=== PATIENT | female | born 1960 | race Caucasian/White ===

== ENCOUNTER 2021-06-21 11:00 | Day surgery (SDC) | payer OTHER ==
[~2021-06-21] VITALS: Ht 172.7 cm; Wt 92.5 kg
[2021-06-21 11:25] VITALS: BP 138/83
[2021-06-21] MEDS ORDERED: LIDOcaine 1% 30ml preserv. free vial IJ STA (11:32)
[2021-06-21] MEDS ORDERED: FLUO40CA10 PO (11:39)
[2021-06-21] MEDS ORDERED: ALPR-623 PO (11:39)
[2021-06-21] MEDS ORDERED: HYDR25TA5 PO (11:39)
[2021-06-21] MEDS ORDERED: LOSA50TA3 PO (11:39)
[2021-06-21] MEDS ORDERED: LEVO50TA8 PO (11:39)
[2021-06-21 12:30] VITALS: BP 134/71
[2021-06-21 12:45] VITALS: BP 132/65
[2021-06-21 12:49] VITALS: BP 131/73
[2021-06-21 13:00] VITALS: BP 132/70
[2021-06-21 13:10] VITALS: BP 135/70
== END 2021-06-21 13:10 | disposition home or self-care (01) ==
LOC: SSTAY O 11:00
PROVIDERS: ATTEND Radiology Diagnostic Radiology
DX: R59.0 Localized enlarged lymph nodes (principal); E03.9 Hypothyroidism, unspecified; F32.9 Major depressive disorder, single episode, unspecified; F41.9 Anxiety disorder, unspecified; I10 Essential (primary) hypertension; Z88.8 Allergy status to other drugs, medicaments and biological substances; Z88.2 Allergy status to sulfonamides; Z79.899 Other long term (current) drug therapy
CPT/HCPCS: 38505; 76942

== ENCOUNTER 2023-09-10 14:56 | Inpatient (IN) | payer OTHER ==
[~2023-09-10] VITALS: Ht 171.4 cm; Wt 94.8 kg
[2023-09-10] VITALS (8 sets, daily range): BP systolic 115–131; BP diastolic 55–64; PULSE 83–92; RESP 14–20; TEMP 98.3–99.1
[~2023-09-10 14:56] MED LIST: ALPR-623 PO; FLUO40CA10 PO; HYDR25TA5 PO; LEVO50TA8 PO; LOSA-416 PO
[2023-09-10 15:48] LABS: BASOPHILS % (AUTO) 1.1 % (0-1); EOSINOPHILS # (AUTO) 0.1 X10'3 (0-0.9); EOSINOPHILS % (AUTO) 2.6 % (0-6); LYMPHOCYTES % (AUTO) 23.7 % (21-51); MEAN CORPUSCULAR HEMOGLOBIN 26.6 PG (27.0-31.0); MEAN CORPUSCULAR HGB CONC 30.1 g/dL (33.0-36.5); MEAN CORPUSCULAR VOLUME 88.2 FL (78-98); MEAN PLATELET VOLUME 9.5 FL (7.4-10.4); MONOCYTES # (AUTO) 0.3 X10'3 (0-0.9); MONOCYTES % (AUTO) 7.3 % (2-12); NEUTROPHILS # (AUTO) 2.7 X10'3 (1.8-7.7); NEUTROPHILS % (AUTO) 65.3 % (42-75); PLATELET COUNT 97 X10'3 (140-440); RED BLOOD COUNT 1.56 X10'6 (4.20-5.60); RED CELL DISTRIBUTION WIDTH 19.3 % (11.5-14.5); WHITE BLOOD COUNT 4.1 X10'3 (4.5-11.0)
[2023-09-10 15:52] LABS: ALBUMIN 2.6 G/DL (3.4-5.0); ANION GAP 12 (8-16); BLOOD UREA NITROGEN 13 MG/DL (7-18); BUN/CREATININE RATIO 13.8 (10.0-20.0); CALCIUM 7.2 MG/DL (8.5-10.1); CHLORIDE 110 MMOL/L (99-107); CREATININE 0.94 MG/DL (0.40-0.90); GLUCOSE 110 MG/DL (70-104); POTASSIUM 3.7 MMOL/L (3.5-5.1); SODIUM 143 MMOL/L (135-145); TOTAL CARBON DIOXIDE 20.7 MMOL/L (24-32); eCRCL 61 ML/MIN; eGFR 60 ML/MIN
[2023-09-10 15:56] LABS: APTT 27 SECONDS (22-32); INR 1.2 INR; PROTHROMBIN TIME 12.6 SECONDS (9.0-12.0)
[2023-09-10 15:58] LABS: HEMATOCRIT 13.7 % (35.0-45.0); HEMOGLOBIN 4.1 g/dl (12.0-16.0)
[2023-09-10 16:41] LABS: ANISOCYTOSIS 2+; HYPOCHROMASIA 1+; PLATELET ESTIMATE DECREASED; STOMATOCYTES FEW; TARGET CELLS FEW
[2023-09-10 16:42] LABS: POIKILOCYTOSIS FEW
[2023-09-10 18:45] LABS: BILIRUBIN,URINE NEGATIVE (Neg); CLARITY,URINE SLIGHTLY CLOUDY (Clear); COLOR,URINE YELLOW (Yellow); GLUCOSE, URINE NEGATIVE (Neg); KETONES,URINE NEGATIVE (Neg); LEUKOCYTE ESTERASE ,URINE NEGATIVE (Neg); NITRITES, URINE NEGATIVE (Neg); OCCULT BLOOD,URINE NEGATIVE (Neg); PROTEIN,URINE NEGATIVE (Neg); UROBILINOGEN,URINE 0.2 E.U/dL (0.2-1.0)
[2023-09-10 18:51] LABS: UA COLLECTION TYPE NON-SPECIFIED
[2023-09-10 18:56] LABS: BACTERIA,URINE FEW /HPF (Neg); MUCUS STRANDS MODERATE /LPF (Neg); RBC,URINE 0-2 /HPF (0-2); RENAL CELLS, URINE FEW /HPF; SQUAMOUS EPITHELIAL CELL,UR FEW /LPF (FEW); WBC,URINE 0-4 /HPF (0-4)
[2023-09-10 19:08] LABS: OCCULT BLOOD STOOL NEGATIVE (Neg)
[2023-09-10] MEDS ORDERED: HYDROcodone/acetaminophen 5mg/325mg tablet PO PRN (20:15)
[2023-09-10] MEDS ORDERED: potassium Cl 20 mEq SR tablet PO PRN ×2 (20:15)
[2023-09-10] MEDS ORDERED: ondansetron/PF 4mg/2ml inj IV PRN (20:15)
[2023-09-10] MEDS ORDERED: magnesium hydroxide 30ml (MOM) UD suspension PO PRN (20:15)
[2023-09-10] MEDS ORDERED: magnesium 4gm in 100ml NS 100 ML IV PRN (20:15)
[2023-09-10] MEDS ORDERED: acetaminophen 325mg tablet PO PRN ×2 (20:15)
[2023-09-10] MEDS ORDERED: magnesium Cl slow-release 64mg tablet PO PRN (20:15)
[2023-09-10] MEDS ORDERED: HYDROcodone/acetaminophen 10/325mg tab PO PRN (20:15)
[2023-09-10] MEDS ORDERED: magnesium 2GM in 50ml NS 50 ML IV PRN (20:15)
[2023-09-10] MEDS ORDERED: potassium Cl 40MEQ/1/2NS 520ml 520 ML IV PRN (20:15)
[2023-09-10] MEDS ORDERED: mag hydrox/Alum hydrox/simeth 30ml oral suspension PO PRN (20:15)
[2023-09-10] MEDS: pantoprazole 40 MG vial IV SCH (20:48)
[2023-09-10 22:04] LABS: ABG BASE EXCESS -3.5 mmol/L (-2.0-2.0); ABG OXYGEN SATURATION 97.9 % (94-97); ABG PCO2 (T) 28.6 mmHg (32.0-45.0); ABG PH (T) 7.462 (7.350-7.450); ABG PO2 (T) 98.8 mmHg (75.0-100.0); FCOHb 0.8 % (0.0-3.9); FHHb 2.1 % (0.0-5.0); FMetHb 0.5 % (0.0-1.5); FO2Hb 96.6 % (94-97); MODE ROOM AIR; TOTAL HEMOGLOBIN 5.7 G/dl (12.0-16.0)
[2023-09-10 22:45] LABS: URINE AMPHETAMINE SCREEN NEGATIVE (Neg); URINE BARBITUATE SCREEN NEGATIVE (Neg); URINE BENZODIAZEPINES SCREEN NEGATIVE (Neg); URINE CANNABINOID SCREEN NEGATIVE (Neg); URINE COCAINE SCREEN NEGATIVE (Neg); URINE METHADONE SCREEN NEGATIVE (Neg); URINE OPIATE SCREEN NEGATIVE (Neg); URINE PHENCYCLIDINE SCREEN NEGATIVE (Neg)
[2023-09-11] VITALS (15 sets, daily range): BP systolic 106–134; BP diastolic 52–75; PULSE 81–91; RESP 15–22; TEMP 97.7–98.7; O2SAT 95–100
[2023-09-11 00:03] LABS: WHITE BLOOD COUNT 3.8 X10'3 (4.5-11.0)
[2023-09-11 00:04] LABS: MEAN CORPUSCULAR VOLUME 87.4 FL (78-98); MEAN PLATELET VOLUME 9.2 FL (7.4-10.4); PLATELET COUNT 70 X10'3 (140-440); RED BLOOD COUNT 2.12 X10'6 (4.20-5.60); RED CELL DISTRIBUTION WIDTH 18.5 % (11.5-14.5)
[2023-09-11 00:12] LABS: HEMOGLOBIN 5.9 g/dl (12.0-16.0)
[2023-09-11 00:13] LABS: HEMATOCRIT 18.6 % (35.0-45.0)
[2023-09-11] MEDS ORDERED: FLUO-12 PO (01:07)
[2023-09-11 07:49] LABS: BASOPHILS % (AUTO) 0.7 % (0-1); EOSINOPHILS # (AUTO) 0.1 X10'3 (0-0.9); EOSINOPHILS % (AUTO) 2.4 % (0-6); HEMATOCRIT 25.1 % (35.0-45.0); HEMOGLOBIN 8.1 g/dl (12.0-16.0); LYMPHOCYTES # (AUTO) 0.9 X10'3 (1.1-4.8); LYMPHOCYTES % (AUTO) 21.8 % (21-51); MEAN CORPUSCULAR HEMOGLOBIN 27.8 PG (27.0-31.0); MEAN CORPUSCULAR HGB CONC 32.5 g/dL (33.0-36.5); MEAN CORPUSCULAR VOLUME 85.8 FL (78-98); MEAN PLATELET VOLUME 9.3 FL (7.4-10.4); MONOCYTES # (AUTO) 0.3 X10'3 (0-0.9); MONOCYTES % (AUTO) 8.2 % (2-12); NEUTROPHILS # (AUTO) 2.7 X10'3 (1.8-7.7); NEUTROPHILS % (AUTO) 66.9 % (42-75); PLATELET COUNT 75 X10'3 (140-440); RED BLOOD COUNT 2.92 X10'6 (4.20-5.60); RED CELL DISTRIBUTION WIDTH 17.6 % (11.5-14.5); WHITE BLOOD COUNT 4.1 X10'3 (4.5-11.0)
[2023-09-11 07:56] LABS: APTT 28 SECONDS (22-32); INR 1.2 INR
[2023-09-11] MEDS: K and/or MAG REPLACEMENT MC SCH (08:00)
[2023-09-11 08:14] LABS: ALANINE AMINOTRANSFERASE 9 U/L (12-78); ALBUMIN 2.4 G/DL (3.4-5.0); ALBUMIN/GLOBULIN RATIO 0.7 (1.1-1.5); ALKALINE PHOSPHATASE 67 IU/L (46-116); ANION GAP 12 (8-16); ASPARTATE AMINO TRANSFERASE 32 U/L (10-37); BLOOD UREA NITROGEN 11 MG/DL (7-18); BUN/CREATININE RATIO 14.1 (10.0-20.0); CALCIUM 7.8 MG/DL (8.5-10.1); CHLORIDE 112 MMOL/L (99-107); CREATININE 0.78 MG/DL (0.40-0.90); FREE T4 (FREE THYROXINE) 1.34 NG/DL (0.73-1.40); GLUCOSE 88 MG/DL (70-104); MAGNESIUM 2.2 MG/DL (1.5-2.4); PHOSPHORUS 2.9 MG/DL (2.3-4.5); POTASSIUM 3.7 MMOL/L (3.5-5.1); SODIUM 145 MMOL/L (135-145); THYROID STIMULATING HORMONE 2.71 ulU/ml (0.34-4.50); TOTAL CARBON DIOXIDE 21.1 MMOL/L (24-32); eCRCL 73 ML/MIN; eGFR 75 ML/MIN
[2023-09-11 08:19] LABS: FERRITIN 18 NG/ML (8-252)
[2023-09-11 08:46] LABS: % IRON SATURATION 55 % (11-46); IRON 212 UG/DL (49-151); TOTAL IRON BINDING CAPACITY 383 UG/DL (259-388)
[2023-09-11] MEDS ORDERED: ALPRAZolam 0.25mg tablet PO PRN (11:25)
[2023-09-11 11:39] LABS: HEMATOCRIT 26.2 % (35.0-45.0); MEAN CORPUSCULAR HGB CONC 32.2 g/dL (33.0-36.5); RED CELL DISTRIBUTION WIDTH 17.6 % (11.5-14.5)
[2023-09-11 11:40] LABS: HEMOGLOBIN 8.4 g/dl (12.0-16.0); MEAN CORPUSCULAR HEMOGLOBIN 27.8 PG (27.0-31.0); MEAN CORPUSCULAR VOLUME 86.2 FL (78-98); MEAN PLATELET VOLUME 9.2 FL (7.4-10.4); PLATELET COUNT 71 X10'3 (140-440); RED BLOOD COUNT 3.04 X10'6 (4.20-5.60)
[2023-09-12 02:00] VITALS: BP 114/43; PULSE 96; RESP 18; TEMP 97.4; O2SAT 96
[2023-09-12 06:00] VITALS: BP 118/54; PULSE 98; RESP 18; TEMP 97.7; O2SAT 98
[2023-09-12 06:46] LABS: BASOPHILS % (AUTO) 0.7 % (0-1); EOSINOPHILS # (AUTO) 0.1 X10'3 (0-0.9); HEMATOCRIT 25.1 % (35.0-45.0); HEMOGLOBIN 8.3 g/dl (12.0-16.0); LYMPHOCYTES # (AUTO) 0.8 X10'3 (1.1-4.8); LYMPHOCYTES % (AUTO) 19.9 % (21-51); MEAN CORPUSCULAR HEMOGLOBIN 28.4 PG (27.0-31.0); MEAN PLATELET VOLUME 9.4 FL (7.4-10.4); MONOCYTES # (AUTO) 0.4 X10'3 (0-0.9); MONOCYTES % (AUTO) 9.1 % (2-12); NEUTROPHILS # (AUTO) 2.8 X10'3 (1.8-7.7); NEUTROPHILS % (AUTO) 67.3 % (42-75); PLATELET COUNT 67 X10'3 (140-440); RED BLOOD COUNT 2.91 X10'6 (4.20-5.60); RED CELL DISTRIBUTION WIDTH 17.7 % (11.5-14.5); WHITE BLOOD COUNT 4.1 X10'3 (4.5-11.0)
[2023-09-12 07:00] LABS: APTT 31 SECONDS (22-32); INR 1.3 INR; PROTHROMBIN TIME 13.7 SECONDS (9.0-12.0)
[2023-09-12 07:17] LABS: ALANINE AMINOTRANSFERASE 8 U/L (12-78); ALBUMIN 2.3 G/DL (3.4-5.0); ALBUMIN/GLOBULIN RATIO 0.6 (1.1-1.5); ALKALINE PHOSPHATASE 70 IU/L (46-116); ANION GAP 10 (8-16); ASPARTATE AMINO TRANSFERASE 29 U/L (10-37); BILIRUBIN,TOTAL 2.4 MG/DL (0.1-1.0); BLOOD UREA NITROGEN 11 MG/DL (7-18); BUN/CREATININE RATIO 12.2 (10.0-20.0); CALCIUM 7.8 MG/DL (8.5-10.1); GLUCOSE 89 MG/DL (70-104); MAGNESIUM 2.1 MG/DL (1.5-2.4); PHOSPHORUS 2.5 MG/DL (2.3-4.5); POTASSIUM 3.7 MMOL/L (3.5-5.1); SODIUM 145 MMOL/L (135-145); TOTAL CARBON DIOXIDE 21.4 MMOL/L (24-32); TOTAL PROTEIN 5.9 G/DL (6.4-8.2); eCRCL 63 ML/MIN; eGFR 63 ML/MIN
[2023-09-12] MEDS: levoTHYROXINE 25mcg tablet PO SCH (07:25)
[2023-09-12] MEDS: FLUoxetine 20mg capsule PO SCH (07:25)
[2023-09-12 08:00] VITALS: RESP 16; O2SAT 98
[2023-09-12 09:14] LABS: CHLORIDE 114 MMOL/L (99-107)
[2023-09-12] MEDS ORDERED: PANT-47 PO (09:57)
[2023-09-12 11:00] VITALS: BP 122/57; PULSE 87; RESP 24; TEMP 97.8; O2SAT 97
== END 2023-09-12 12:40 | disposition home or self-care (01) | DRG 812 ==
LOC: ER 14:58 → ED HOLD 20:15 → PCU 3S 09-11 00:30
PROVIDERS: ADMIT Family Medicine; ATTEND Internal Medicine
PROC: 30233N1 Transfusion of Nonautologous Red Blood Cells into Peripheral Vein, Percutaneous Approach (ICD-10-PCS; principal; 2023-09-10)
DX: D64.9 Anemia, unspecified (principal); K76.6 Portal hypertension; E03.9 Hypothyroidism, unspecified; I10 Essential (primary) hypertension; D69.6 Thrombocytopenia, unspecified; K70.30 Alcoholic cirrhosis of liver without ascites; K31.89 Other diseases of stomach and duodenum
CPT/HCPCS: 36415; 36430; 36600; 71045; 71250; 74176; 80048; 80053; 80305; 81001; 82272; 82607; 82728; 82746; 82803; 83540; 83550; 83605; 83735; 84100; 84439; 84443; 85008; 85018; 85025; 85027; 85610; 85730; 86705; 86709; 86803; 86885; 86900; 86901; 86920; 87340; 87522; 93005; 93306; 99285; C9113; G0378; J7040; P9016

== ENCOUNTER 2023-11-12 15:15 | Inpatient (IN) | payer OTHER ==
[~2023-11-12] VITALS: Ht 170.2 cm; Wt 93.0 kg
[~2023-11-12 15:15] MED LIST changes: +FLUO-12 PO; -FLUO40CA10 PO; -HYDR25TA5 PO; -LOSA-416 PO; +PANT-47 PO
[2023-11-12] MEDS ORDERED: LEVO25TA7 PO (15:57)
[2023-11-12 16:28] LABS: BASOPHILS % (AUTO) 0.9 % (0-1); EOSINOPHILS # (AUTO) 0.1 X10'3 (0-0.9); EOSINOPHILS % (AUTO) 1.5 % (0-6); LYMPHOCYTES # (AUTO) 0.8 X10'3 (1.1-4.8); LYMPHOCYTES % (AUTO) 18.3 % (21-51); MEAN CORPUSCULAR HEMOGLOBIN 32.9 PG (27.0-31.0); MEAN CORPUSCULAR HGB CONC 30.9 g/dL (33.0-36.5); MEAN CORPUSCULAR VOLUME 106.3 FL (78-98); MEAN PLATELET VOLUME 10.4 FL (7.4-10.4); MONOCYTES # (AUTO) 0.4 X10'3 (0-0.9); NEUTROPHILS % (AUTO) 70.3 % (42-75); PLATELET COUNT 130 X10'3 (140-440); RED BLOOD COUNT 1.46 X10'6 (4.20-5.60); RED CELL DISTRIBUTION WIDTH 17.2 % (11.5-14.5); WHITE BLOOD COUNT 4.2 X10'3 (4.5-11.0)
[2023-11-12 16:40] LABS: HEMATOCRIT 15.5 % (35.0-45.0); HEMOGLOBIN 4.8 g/dl (12.0-16.0)
[2023-11-12 16:43] LABS: ALBUMIN 1.8 G/DL (3.4-5.0); ALBUMIN/GLOBULIN RATIO 0.5 (1.1-1.5); ALKALINE PHOSPHATASE 84 IU/L (46-116); ANION GAP 9 (8-16); ASPARTATE AMINO TRANSFERASE 32 U/L (10-37); BILIRUBIN,TOTAL 0.6 MG/DL (0.1-1.0); BLOOD UREA NITROGEN 19 MG/DL (7-18); BUN/CREATININE RATIO 22.6 (10.0-20.0); CALCIUM 7.8 MG/DL (8.5-10.1); CHLORIDE 106 MMOL/L (99-107); CREATININE 0.84 MG/DL (0.40-0.90); GLUCOSE 114 MG/DL (70-104); LIPASE 31 U/L (16-77); POTASSIUM 3.6 MMOL/L (3.5-5.1); SODIUM 138 MMOL/L (135-145); TOTAL CARBON DIOXIDE 22.9 MMOL/L (24-32); TOTAL PROTEIN 5.8 G/DL (6.4-8.2); eCRCL 67 ML/MIN; eGFR 68 ML/MIN
[2023-11-12 16:48] LABS: ALANINE AMINOTRANSFERASE < 6 U/L (12-78)
[2023-11-12] MEDS ORDERED: pantoprazole 40mg IV 80 MG in normal saline 100ml IV soln 100 ML IV ONE (16:55)
[2023-11-12] MEDS ORDERED: acetaminophen 325mg tablet PO PRN (17:15)
[2023-11-12] MEDS ORDERED: potassium Cl 20 mEq SR tablet PO PRN ×2 (17:15)
[2023-11-12] MEDS ORDERED: magnesium hydroxide 30ml (MOM) UD suspension PO PRN (17:15)
[2023-11-12] MEDS ORDERED: magnesium 2GM in 50ml NS 50 ML IV PRN (17:15)
[2023-11-12] MEDS ORDERED: morphine 2 MG/ML inj. syringe IV PRN (17:15)
[2023-11-12] MEDS: dextrose 5%-1/2 normal saline 1,000 ML IV SCH (17:15)
[2023-11-12] MEDS ORDERED: magnesium Cl slow-release 64mg tablet PO PRN (17:15)
[2023-11-12] MEDS ORDERED: HYDROcodone/acetaminophen 5mg/325mg tablet PO PRN (17:15)
[2023-11-12] MEDS ORDERED: mag hydrox/Alum hydrox/simeth 30ml oral suspension PO PRN (17:15)
[2023-11-12] MEDS ORDERED: magnesium 4gm in 100ml NS 100 ML IV PRN (17:15)
[2023-11-12] MEDS: pantoprazole 40 MG vial IV ONE (17:21)
[2023-11-12] MEDS: pantoprazole 40MG/NS 100ML BAG 100 ML IV ONE (17:22)
[2023-11-12 18:15] LABS: INR 1.3 INR
[2023-11-12 18:16] LABS: PROTHROMBIN TIME 13.8 SECONDS (9.0-12.0)
[2023-11-12 18:20] VITALS: BP 116/50; PULSE 91; RESP 20; TEMP 99
[2023-11-12 19:18] LABS: OCCULT BLOOD STOOL POSITIVE (Neg)
[2023-11-12] MEDS: K and/or MAG REPLACEMENT MC SCH (20:00)
[2023-11-12] MEDS: docusate sod 100mg capsule PO SCH (20:00)
[2023-11-12 20:38] LABS: BILIRUBIN,URINE NEGATIVE (Neg); CLARITY,URINE CLEAR (Clear); COLOR,URINE YELLOW (Yellow); GLUCOSE, URINE NEGATIVE (Neg); KETONES,URINE NEGATIVE (Neg); LEUKOCYTE ESTERASE ,URINE NEGATIVE (Neg); NITRITES, URINE NEGATIVE (Neg); OCCULT BLOOD,URINE NEGATIVE (Neg); PROTEIN,URINE NEGATIVE (Neg); UROBILINOGEN,URINE 0.2 E.U/dL (0.2-1.0)
[2023-11-12 20:52] LABS: UA COLLECTION TYPE CLN CATCH MIDSTREAM
[2023-11-12 21:50] VITALS: BP 132/102; PULSE 87; RESP 18; TEMP 99.1; O2SAT 100
[2023-11-12 22:30] VITALS: RESP 18; O2SAT 99
[2023-11-12 23:04] VITALS: BP 126/57; PULSE 88; RESP 18; TEMP 98.7
[2023-11-12 23:29] VITALS: BP 117/54; PULSE 88; RESP 18; TEMP 99.4
[2023-11-13] VITALS (14 sets, daily range): BP systolic 100–131; BP diastolic 48–74; PULSE 74–86; RESP 16–22; TEMP 97.5–98.7; O2SAT 94–99
[2023-11-13 05:13] LABS: EOSINOPHILS # (AUTO) 0.1 X10'3 (0-0.9); EOSINOPHILS % (AUTO) 2.3 % (0-6); LYMPHOCYTES # (AUTO) 0.8 X10'3 (1.1-4.8); LYMPHOCYTES % (AUTO) 23.6 % (21-51); MEAN CORPUSCULAR HGB CONC 32.8 g/dL (33.0-36.5); MEAN CORPUSCULAR VOLUME 97.7 FL (78-98); MONOCYTES # (AUTO) 0.3 X10'3 (0-0.9); MONOCYTES % (AUTO) 8.4 % (2-12); NEUTROPHILS # (AUTO) 2.3 X10'3 (1.8-7.7); NEUTROPHILS % (AUTO) 64.7 % (42-75); PLATELET COUNT 109 X10'3 (140-440); RED BLOOD COUNT 2.12 X10'6 (4.20-5.60); RED CELL DISTRIBUTION WIDTH 18.7 % (11.5-14.5); WHITE BLOOD COUNT 3.5 X10'3 (4.5-11.0)
[2023-11-13 05:16] LABS: HEMATOCRIT 20.7 % (35.0-45.0); HEMOGLOBIN 6.8 g/dl (12.0-16.0)
[2023-11-13 05:33] LABS: ALANINE AMINOTRANSFERASE 9 U/L (12-78); ALBUMIN 1.7 G/DL (3.4-5.0); ALBUMIN/GLOBULIN RATIO 0.5 (1.1-1.5); ALKALINE PHOSPHATASE 79 IU/L (46-116); ANION GAP 8 (8-16); ASPARTATE AMINO TRANSFERASE 33 U/L (10-37); BILIRUBIN,TOTAL 1.8 MG/DL (0.1-1.0); BLOOD UREA NITROGEN 18 MG/DL (7-18); BUN/CREATININE RATIO 22.8 (10.0-20.0); CALCIUM 7.8 MG/DL (8.5-10.1); CHLORIDE 109 MMOL/L (99-107); CREATININE 0.79 MG/DL (0.40-0.90); GLUCOSE 99 MG/DL (70-104); MAGNESIUM 1.9 MG/DL (1.5-2.4); POTASSIUM 3.3 MMOL/L (3.5-5.1); SODIUM 141 MMOL/L (135-145); TOTAL PROTEIN 5.3 G/DL (6.4-8.2); eCRCL 71 ML/MIN; eGFR 74 ML/MIN
[2023-11-13 07:05] LABS: ANISOCYTOSIS 2+; HYPOCHROMASIA 3+; PLATELET ESTIMATE DECREASED; POLYCHROMASIA FEW
[2023-11-13 07:06] LABS: SCHISTOCYTES FEW
[2023-11-13] MEDS: pantoprazole 40MG/NS 100ML BAG 100 ML IV SCH (08:11)
[2023-11-13] MEDS: potassium Cl 40MEQ/1/2NS 520ml 520 ML IV PRN (13:10)
[2023-11-13 21:10] LABS: HEMATOCRIT 25.1 % (35.0-45.0); HEMOGLOBIN 8.3 g/dl (12.0-16.0); MEAN CORPUSCULAR HEMOGLOBIN 32.2 PG (27.0-31.0); MEAN CORPUSCULAR HGB CONC 33.3 g/dL (33.0-36.5); MEAN CORPUSCULAR VOLUME 96.9 FL (78-98); MEAN PLATELET VOLUME 10.1 FL (7.4-10.4); PLATELET COUNT 109 X10'3 (140-440); RED BLOOD COUNT 2.59 X10'6 (4.20-5.60); RED CELL DISTRIBUTION WIDTH 18.7 % (11.5-14.5); WHITE BLOOD COUNT 3.5 X10'3 (4.5-11.0)
[2023-11-14] VITALS (12 sets, daily range): BP systolic 117–160; BP diastolic 55–116; PULSE 77–116; RESP 14–24; TEMP 97.4–98.7; O2SAT 95–99
[2023-11-14 05:35] LABS: BASOPHILS % (AUTO) 1.1 % (0-1); EOSINOPHILS # (AUTO) 0.1 X10'3 (0-0.9); EOSINOPHILS % (AUTO) 3.3 % (0-6); HEMATOCRIT 24.6 % (35.0-45.0); HEMOGLOBIN 8.1 g/dl (12.0-16.0); LYMPHOCYTES # (AUTO) 0.8 X10'3 (1.1-4.8); LYMPHOCYTES % (AUTO) 23.1 % (21-51); MEAN CORPUSCULAR HEMOGLOBIN 32.4 PG (27.0-31.0); MEAN CORPUSCULAR HGB CONC 33.1 g/dL (33.0-36.5); MEAN CORPUSCULAR VOLUME 97.9 FL (78-98); MEAN PLATELET VOLUME 10.6 FL (7.4-10.4); MONOCYTES # (AUTO) 0.3 X10'3 (0-0.9); MONOCYTES % (AUTO) 9.5 % (2-12); NEUTROPHILS # (AUTO) 2.3 X10'3 (1.8-7.7); PLATELET COUNT 110 X10'3 (140-440); RED BLOOD COUNT 2.51 X10'6 (4.20-5.60); RED CELL DISTRIBUTION WIDTH 18.1 % (11.5-14.5); WHITE BLOOD COUNT 3.6 X10'3 (4.5-11.0)
[2023-11-14 06:19] LABS: ALANINE AMINOTRANSFERASE 6 U/L (12-78); ALBUMIN 1.7 G/DL (3.4-5.0); ALBUMIN/GLOBULIN RATIO 0.4 (1.1-1.5); ALKALINE PHOSPHATASE 78 IU/L (46-116); ANION GAP 10 (8-16); ASPARTATE AMINO TRANSFERASE 39 U/L (10-37); BILIRUBIN,TOTAL 1.7 MG/DL (0.1-1.0); BLOOD UREA NITROGEN 14 MG/DL (7-18); BUN/CREATININE RATIO 18.7 (10.0-20.0); CALCIUM 7.9 MG/DL (8.5-10.1); CHLORIDE 110 MMOL/L (99-107); CREATININE 0.75 MG/DL (0.40-0.90); GLUCOSE 98 MG/DL (70-104); MAGNESIUM 1.9 MG/DL (1.5-2.4); POTASSIUM 3.6 MMOL/L (3.5-5.1); SODIUM 141 MMOL/L (135-145); TOTAL CARBON DIOXIDE 20.6 MMOL/L (24-32); TOTAL PROTEIN 5.5 G/DL (6.4-8.2); eCRCL 75 ML/MIN; eGFR 78 ML/MIN
[2023-11-14] MEDS ORDERED: MIDAZolam 1 MG/ML 5ML VIAL ONE (10:21)
[2023-11-14] MEDS ORDERED: fentaNYL/PF 50MCG/1 ML 2ML syringe ONE (10:21)
[2023-11-14] MEDS ORDERED: LIDOcaine 2% Viscous 15ml cup ONE (10:21)
[2023-11-14] MEDS ORDERED: glucagon, human recombinant 1mg kit ONE (10:39)
[2023-11-14] MEDS: ondansetron/PF 4mg/2ml inj IV PRN (22:20)
[2023-11-15] MEDS: proCHLORperazine 10 MG/2 ml inj IV PRN (01:06)
[2023-11-15 02:00] VITALS: BP 130/62; PULSE 91; RESP 20; TEMP 98.8; O2SAT 97
[2023-11-15 05:47] LABS: BASOPHILS % (AUTO) 0.8 % (0-1); EOSINOPHILS # (AUTO) 0.1 X10'3 (0-0.9); EOSINOPHILS % (AUTO) 2.3 % (0-6); HEMATOCRIT 24.3 % (35.0-45.0); HEMOGLOBIN 7.9 g/dl (12.0-16.0); LYMPHOCYTES # (AUTO) 0.8 X10'3 (1.1-4.8); LYMPHOCYTES % (AUTO) 18.8 % (21-51); MEAN CORPUSCULAR HEMOGLOBIN 31.8 PG (27.0-31.0); MEAN CORPUSCULAR HGB CONC 32.4 g/dL (33.0-36.5); MEAN CORPUSCULAR VOLUME 98.2 FL (78-98); MEAN PLATELET VOLUME 10.2 FL (7.4-10.4); MONOCYTES # (AUTO) 0.4 X10'3 (0-0.9); MONOCYTES % (AUTO) 7.9 % (2-12); NEUTROPHILS # (AUTO) 3.1 X10'3 (1.8-7.7); NEUTROPHILS % (AUTO) 70.2 % (42-75); PLATELET COUNT 115 X10'3 (140-440); RED BLOOD COUNT 2.47 X10'6 (4.20-5.60); RED CELL DISTRIBUTION WIDTH 17.8 % (11.5-14.5); WHITE BLOOD COUNT 4.5 X10'3 (4.5-11.0)
[2023-11-15 06:03] LABS: ALBUMIN 1.6 G/DL (3.4-5.0); ALBUMIN/GLOBULIN RATIO 0.4 (1.1-1.5); ALKALINE PHOSPHATASE 82 IU/L (46-116); ANION GAP 8 (8-16); ASPARTATE AMINO TRANSFERASE 36 U/L (10-37); BILIRUBIN,TOTAL 1.3 MG/DL (0.1-1.0); BLOOD UREA NITROGEN 13 MG/DL (7-18); BUN/CREATININE RATIO 16.5 (10.0-20.0); CALCIUM 7.5 MG/DL (8.5-10.1); CHLORIDE 110 MMOL/L (99-107); CREATININE 0.79 MG/DL (0.40-0.90); GLUCOSE 106 MG/DL (70-104); MAGNESIUM 1.9 MG/DL (1.5-2.4); POTASSIUM 3.6 MMOL/L (3.5-5.1); SODIUM 139 MMOL/L (135-145); TOTAL CARBON DIOXIDE 20.7 MMOL/L (24-32); TOTAL PROTEIN 5.5 G/DL (6.4-8.2); eCRCL 71 ML/MIN; eGFR 74 ML/MIN
[2023-11-15 06:08] LABS: ALANINE AMINOTRANSFERASE < 6 U/L (12-78)
[2023-11-15 07:00] VITALS: BP 105/51; PULSE 91; RESP 20; TEMP 98.8; O2SAT 96
[2023-11-15 08:00] VITALS: RESP 16; O2SAT 96
== END 2023-11-15 13:15 | disposition home or self-care (01) | DRG 378 ==
LOC: ER 15:15 → PCU 3S 20:40 → EDBEDREQ 20:46 → PCU 3S 21:51
PROVIDERS: ADMIT Internal Medicine; ATTEND Internal Medicine
PROC: 30233N1 Transfusion of Nonautologous Red Blood Cells into Peripheral Vein, Percutaneous Approach (ICD-10-PCS; principal; 2023-11-12)
PROC: 0W3P8ZZ Control Bleeding in Gastrointestinal Tract, Via Natural or Artificial Opening Endoscopic (ICD-10-PCS; 2023-11-14)
DX: K31.811 Angiodysplasia of stomach and duodenum with bleeding (principal); K76.6 Portal hypertension; K70.31 Alcoholic cirrhosis of liver with ascites; K72.90 Hepatic failure, unspecified without coma; I10 Essential (primary) hypertension; E03.9 Hypothyroidism, unspecified; F32.A Depression, unspecified; F41.9 Anxiety disorder, unspecified; D69.6 Thrombocytopenia, unspecified; K31.89 Other diseases of stomach and duodenum; D50.0 Iron deficiency anemia secondary to blood loss (chronic); Z88.2 Allergy status to sulfonamides; Z88.8 Allergy status to other drugs, medicaments and biological substances
CPT/HCPCS: 36415; 36430; 43227; 80053; 80320; 81003; 82140; 82272; 83690; 83735; 85008; 85025; 85027; 85610; 86885; 86900; 86901; 86920; 87081; 96365; 96376; 99152; 99153; 99285; C9113; G0378; J0780; J1610; J2250; J2405; J3010; J3480; J7030; J7040; J7042; J7050; P9016

== ENCOUNTER 2024-06-29 08:16 | Day surgery (SDC) | payer OTHER ==
[~2024-06-29] VITALS: Ht 171.4 cm; Wt 73.2 kg
[~2024-06-29 08:16] MED LIST changes: +LEVO25TA7 PO; -LEVO50TA8 PO; -PANT-47 PO
[2024-06-29 08:36] VITALS: BP 117/49; PULSE 70; RESP 14; TEMP 98.3
[2024-06-29] MEDS ORDERED: midazolam 1 mg/ML 2ml injection ONE (09:38)
[2024-06-29] MEDS ORDERED: fentaNYL/PF 50MCG/1 ML 2ML syringe ONE (09:38)
[2024-06-29] MEDS ORDERED: propofol inj 20 ML IV ONE (09:39)
[2024-06-29 10:02] VITALS: BP 109/50; PULSE 75; RESP 16; O2SAT 92
[2024-06-29 10:12] VITALS: BP 110/52; PULSE 74; RESP 12; O2SAT 93
[2024-06-29 10:22] VITALS: BP 123/56; PULSE 67; RESP 15; O2SAT 93
[2024-06-29 10:32] VITALS: BP 116/55; PULSE 67; RESP 14; O2SAT 93
== END 2024-06-29 10:48 | disposition home or self-care (01) ==
LOC: GI LAB 08:16
PROVIDERS: ATTEND Internal Medicine Gastroenterology
DX: K31.819 Angiodysplasia of stomach and duodenum without bleeding (principal); K76.6 Portal hypertension; K31.89 Other diseases of stomach and duodenum; I10 Essential (primary) hypertension; F41.9 Anxiety disorder, unspecified; D50.0 Iron deficiency anemia secondary to blood loss (chronic); Z87.891 Personal history of nicotine dependence; Z88.8 Allergy status to other drugs, medicaments and biological substances
CPT/HCPCS: 43255; J2250; J2704; J3010; J7030; Z7512; 43227; 43277